=== PATIENT | male | born 2000 | race Two or more races ===

== ENCOUNTER 2024-03-22 18:53 | Emergency (ER) | payer MEDICAID, OTHER ==
[~2024-03-22] VITALS: Ht 182.9 cm; Wt 97.1 kg
[2024-03-22 19:02] VITALS: BP 121/72; TEMP 97.9; O2SAT 100
[2024-03-23 21:08] LABS: HIV-1 p24 ANTIGEN NON REACTIVE (NONREACTIVE); HIV-1/2 ANTIBODY NON REACTIVE (NONREACTIVE)
[2024-03-26 00:06] LABS: HEPATITIS B SURFACE AB Reactive (.)
== END 2024-03-22 20:56 | disposition home or self-care (01) ==
LOC: ER 18:58
DX: S69.82XA Other specified injuries of left wrist, hand and finger(s), initial encounter (principal); W46.0XXA Contact with hypodermic needle, initial encounter; Y99.0 Civilian activity done for income or pay; Y92.89 Other specified places as the place of occurrence of the external cause; Z77.21 Contact with and (suspected) exposure to potentially hazardous body fluids
CPT/HCPCS: 36415; 86706; 86803; 87806